=== PATIENT | female | born 1995 | race Two or more races ===

== ENCOUNTER 2024-05-10 17:21 | Emergency (ER) | payer OTHER ==
[~2024-05-10] VITALS: Ht 162.6 cm; Wt 98.4 kg
[2024-05-10] MEDS ORDERED: ONDANSETRON HCL 2 MG/ML VIAL IV ONE (19:15)
[2024-05-10] MEDS ORDERED: ONDANSETRON HCL 2 MG/ML VIAL ONE (19:22)
[2024-05-10] MEDS ORDERED: ACETAMINOPHEN 500 MG GEL..CAP PO ONE (19:22)
[2024-05-10 19:41] LABS: HEMATOCRIT 38.9 % (36.0-45.00); MEAN CORPUSCULAR HEMOGLOBIN 28.2 pg (27.00-32.0); MEAN CORPUSCULAR HGB CONC 33.5 g/dl (32.0-36.0); PLATELET COUNT 246 K/uL (150-450); RED BLOOD COUNT 4.62 M/uL (4.00-6.00); RED CELL DISTRIBUTION WIDTH 13.8 % (11.5-14.5)
[2024-05-10 20:03] LABS: CALCIUM 8.7 mg/dL (8.5-10.1); CREATININE SERUM 0.57 mg/dL (0.55-1.02); GFR 125.4; POTASSIUM 3.82 mEq/L (3.5-5.1)
== END 2024-05-10 21:38 | disposition home or self-care (01) ==
LOC: ER 17:24
PROVIDERS: Emergency Medicine
DX: R51.9 Headache, unspecified (principal); K29.70 Gastritis, unspecified, without bleeding; Z20.822 Contact with and (suspected) exposure to COVID-19